=== PATIENT | female | born 1985 | race Caucasian/White ===

== ENCOUNTER 2019-03-22 06:17 | Day surgery (SDC) | payer OTHER ==
[2019-03-22] MEDS ORDERED: MIDAZOLAM 1 MG/ML 2 ML INJ ×4 (08:52→08:53)
[2019-03-22] MEDS ORDERED: FENTAnyl 50 MCG/ML VIAL (08:52)
== END 2019-03-22 10:43 | disposition home or self-care (01) ==
LOC: GIL 06:17
DX: R19.4 Change in bowel habit (principal); K64.8 Other hemorrhoids; K20.9 Esophagitis, unspecified; K29.60 Other gastritis without bleeding
CPT/HCPCS: 43239; 84703; 88305